=== PATIENT | male | born 1985 | race Caucasian/White ===

== ENCOUNTER 2024-03-07 12:05 | Inpatient (IN) ==
--- NOTE | 2024-03-07 12:50 | Emergency Department Note ---
Impression & Plan Fever, Transaminitis, Acute Lyme disease, Leukocytosis, Elevated lipase, Elevated troponin ED Provider Note HISTORY OF PRESENT ILLNESS: Patient is a 39-year-old male presenting with fevers. Patient reports he had a fever for the last week. Reports the temperatures been up to 101 Fahrenheit. Reports he last took a dose of ibuprofen around 7:30 AM. He states that he was found to have elevated. Liver function tests 3 days ago. He had repeat testing done at [facility] 48 hours ago that showed elevated numbers and he was referred to the emergency department for further evaluation. He reports that he has had epigastric pain intermittently over the last week. He denies any history of abdominal surgeries. Denies any nausea or vomiting. Reports that he had left-sided posterior neck pain earlier today. He does report that he noticed a few erythematous blotchy patches on his abdomen that started yesterday. He denies them being itchy. No known tick exposures. Denies any chest pain or shortness of breath. Denies any recent travel or recent sick contact exposures. ROS: as above PHYSICAL EXAM: Constitutional: Patient appears in no acute distress. HENT: Head: Normocephalic and atraumatic. Eyes: EOMI, PERRL Mouth/Throat: Mucous membranes moist. Neck: Trachea midline. Neck supple. Cardiovascular: RRR, No murmurs, rubs or gallops. Intact distal pulses. Pulmonary/Chest: No respiratory distress. Breath sounds clear and equal bilaterally. No wheezes or rales. Abdominal: Abdomen soft, no tenderness, rebound or guarding. Musculoskeletal: No edema, tenderness or deformity noted. Skin: Warm and dry. No rash, erythema, pallor or cyanosis Psychiatric: Appropriate mood and affect for situation. Neurological: Alert and keenly responsive. CN II-XII grossly intact, moving all extremities equally and fully. MDM: - Vitals signs showed hypertension and tachycardia. - History obtained via patient. History as above. - Chronic conditions affecting care: none - Differential diagnoses include, but are not limited to: cholecystitis; choledocholithiasis; Lyme disease; tick borne illness; hepatitis - Order placed for continuous cardiac monitoring. At this time, monitor showed rate of 87 bpm with normal sinus rhythm, per my interpretation. - External medical records reviewed. [facility] visit note with his primary care provider from 03/07/2024 was reviewed. Patient was seen for his fevers and moderate LFT elevation. He was prescribed doxycycline on 03/06/2024, but only took one pill. Given his symptoms, he was referred to the ER today. - EKG interpreted by myself showed normal sinus rhythm. Rate 91 bpm. QT 358. No acute ischemic changes. Noted to have an incomplete right bundle branch block. - Laboratory workup interpreted by myself showed leukocytosis (WBC 14.45); normal PT/INR; normal lactate; stable electrolytes; elevated total bilirubin (1.3); transaminitis (AST 191; ALT 605); elevated troponin (26.9); elevated lipase (96); normal procalcitonin - US abdomen limited study obtained on 03/06/2024 from [facility] was reviewed. Showed no acute abnormalities. Noted to have splenomegaly and a "homogeneous subcentimeter hyperechoic lesion in the right hepatic lobe, which likely represents a hemangioma." - Blood cultures obtained - Negative anaplasma smear - Positive Lyme - VBG normal - CXR negative for pneumonia, per my interpretation - Viral respiratory panel negative - CT abdomen/pelvis with IV contrast negative for acute pathology. Noted to have a borderline enlarged spleen. - Patient given 1L NS in ER. Given 100 mg IV doxycycline. - Acute hepatitis panel ordered for further workup. - Patient's transaminitis likely secondary to his Lyme disease infection. Discussed results with patient. Will admit to hospitalist service for further workup. - Discussion was had with case management director about patient's case and need for admission - Hospitalist consulted for admission - Patient admitted to [facility] hospitalist service for further evaluation and management. ASSESSMENT AND PLAN: Diagnosis: fever; transaminitis; acute lyme disease; elevated troponin; elevated lipase; leukocytosis Plan: admit Past Med/Surg History Problem List (Updated 03/07/24 @ 16:04 by Jennifer Palomares MD) Elevated troponin (Acute) Elevated lipase (Acute) Leukocytosis (Acute) Acute Lyme disease (Acute) Transaminitis (Acute) Fever (Acute) No known health problems (Chronic 12/30/12) Social History Smoking Status: Never smoker Feels Safe at Home: Yes Allergies Allergies Allergy/AdvReac Type Severity Reaction Status Date / Time No Known Allergies Allergy Unverified 12/30/12 18:33 Home Meds Home Medications Medication Instructions Recorded Confirmed None (Patient States No Home Meds) ##0 12/30/12 Previous Rx's Medication Instructions Recorded DOCUSATE SODIUM (COLACE) 100 mg PO BID ##30 12/31/12 IBUPROFEN (SM IBUPROFEN) 400 mg PO Q6H PRN 10 days ##0 12/31/12 OXYCODONE/ACETAMINOPHEN 5MG/325MG 1 - 2 tab PO Q4H PRN ##60 12/31/12 Results & Data (ED) Vital Signs Vital Signs - 24 hr 03/07/24 12:07 03/07/24 12:26 03/07/24 12:32 Temperature 36.5 C Temperature Source Oral Pulse Rate 96 H 103 H Respiratory Rate 20 Respiratory Effort / Characteristics Non-Labored Spontaneous Respiratory Depth Normal Blood Pressure 143/96 H Blood Pressure Mean 111 Pulse Oximetry 96 98 Oxygen Delivery Method Room Air Room Air Sepsis Recent Fever Within 48 Hours No Sepsis New/Unexplained Change in Mental Status No Sepsis Action Taken by Nursing No Action Required 03/07/24 13:00 03/07/24 13:30 03/07/24 13:43 Temperature 37.0 C Temperature Source Oral Pulse Rate 86 87 Respiratory Rate 18 20 Respiratory Effort / Characteristics Respiratory Depth Blood Pressure 125/79 118/78 Blood Pressure Mean 95 90 Pulse Oximetry 98 100 Oxygen Delivery Method Room Air Room Air Sepsis Recent Fever Within 48 Hours Sepsis New/Unexplained Change in Mental Status Sepsis Action Taken by Nursing Laboratory Data 03/07/24 12:25 03/07/24 12:25 Lab Results 03/07/24 03/07/24 03/07/24 Range/Units 12:25 12:26 12:42 WBC 14.45 H (4.8-10.8) K/ul RBC 4.79 (4.70-6.10) M/uL Hgb 14.3 (14.0-18.0) g/dl Hct 41.9 L (42.0-52.0) % MCV 87.5 (80.0-100.0) fL MCH 29.9 (25.0-34.0) pg MCHC 34.1 (32.0-36.0) g/dL RDW Std Deviation 39.6 (36.4-46.3) fL RDW Coeff of Juanito 12.3 (11.5-14.5) % Plt Count 234 (130-400) K/uL MPV 8.4 L (9.4-12.4) fL Immature Gran % (Auto) 0.4 % Neut % (Auto) 75.7 % Lymph % (Auto) 16.7 % Travis % (Auto) 6.5 % Eos % (Auto) 0.5 % Baso % (Auto) 0.2 % Neut # (Auto) 10.94 H (1.40-6.50) K/uL Lymph # (Auto) 2.41 (1.20-3.40) K/uL Travis # (Auto) 0.94 H (0.11-0.59) K/uL Eos # (Auto) 0.07 (0.00-0.50) K/uL Baso # (Auto) 0.03 (0.00-0.20) K/uL Immature Gran # (Auto) 0.06 (0.01-0.20) K/uL PT 11.2 (9.0-12.0) Seconds INR 1.0 (0.9-1.1) VBG pH 7.40 (7.36-7.41) VBG pCO2 41 (38-50) mmHg VBG pO2 46 mmHg VBG HCO3 25 mmol/L VBG O2 Saturation 81.9 % VBG Base Excess 0.5 mEq/L Sodium 138 (136-145) mmol/L Potassium 3.6 (3.5-5.1) mmol/L Chloride 102 (98-107) mmol/L Carbon Dioxide 28 (21-32) mmol/L Anion Gap 8 (3-11) BUN 14 (6-23) mg/dl Creatinine 0.85 (0.6-1.4) mg/dl Est Cr Clr Drug Dosing 126.8 ml/min Est GFR ( Amer) 126.3 ml/min Est GFR (Non-Af Amer) 109.0 ml/min BUN/Creatinine Ratio 16.5 (10-20) Glucose 101 H (70-99(Fasting)) mg/dl Lactate 1.3 (0.4-2.0) mmol/L Calcium 9.8 (8.6-10.3) mg/dl Magnesium 2.0 (1.7-2.4) mg/dl Total Bilirubin 1.3 H (0.2-1.0) mg/dl Direct Bilirubin 0.3 H (0-0.2) mg/dl AST 191 H (13-39) U/L ALT 605 H (7-52) U/L Alkaline Phosphatase 235 H (34-104) U/L Troponin I High Sens 26.9 H (0-20) pg/ml Total Protein 8.3 (6.0-8.3) gm/dl Albumin 4.5 (3.4-5.0) gm/dl Lipase 96 H (11-82) U/L Procalcitonin 0.34 (0-0.5) ng/ml Adenovirus (PCR) Not Detected (NotDetected) Anaplasma Smear See Comment B. pertussis DNA (PCR) Not Detected (NotDetected) B.parapertussis DNA PCR Not Detected (NotDetected) Lyme Disease Screen Positive H (Negative) Lyme Tier 2 IgG Confirm Positive H (Negative) Lyme Tier 2 IgM Confirm Positive H (Negative) C. pneumoniae DNA (PCR) Not Detected (NotDetected) Coronavirus OC43 (PCR) Not Detected (NotDetected) Coronavirus HKU1 (PCR) Not Detected (NotDetected) Coronavirus 229E (PCR) Not Detected (NotDetected) SARS-CoV-2 (PCR) Not Detected (NotDetected) Coronavirus NL63 (PCR) Not Detected (NotDetected) Human Metapneumovir PCR Not Detected (NotDetected) Influenza Type A (PCR) Not Detected (NotDetected) Influenza Type B (PCR) Not Detected (NotDetected) M. pneumoniae (PCR) Not Detected (NotDetected) Parainfluenza 1 (PCR) Not Detected (NotDetected) Parainfluenza 2 (PCR) Not Detected (NotDetected) Parainfluenza 3 (PCR) Not Detected (NotDetected) Parainfluenza 4 (PCR) Not Detected (NotDetected) RSV (PCR) Not Detected (NotDetected) Entero/Rhino (PCR) Not Detected (NotDetected) Administered Medications Discontinued Medications Sodium Chloride (Nss) 1,000 mls @ 999 mls/hr IV .Q1H1M ONE Stop: 03/07/24 13:48 Last Infusion: 03/07/24 14:17 Dose: Infused Documented By: Admin: 03/07/24 13:15 Dose: 999 mls/hr Documented By: CONRADO Doxycycline Hyclate 100 mg/ (Dextrose) 100 mls @ 50 mls/hr IV NOW STA Stop: 03/07/24 15:53 Last Admin: 03/07/24 15:34 Dose: 50 mls/hr Documented By: NEELIMA Ioversol (Optiray 320 100ml) 94 ml IV ONCE ONE Stop: 03/07/24 13:59 Last Admin: 03/07/24 13:59 Dose: 94 ml Documented By: ELENA Imaging Data Radiologist's Impression: Chest X-Ray 03/07/24 12:18 XR chest 1V portable CLINICAL HISTORY: Sepsis. COMPARISON STUDY: Chest CT and chest radiograph December 30, 2012. FINDINGS: Lung volumes are normal. Lungs are clear. There is no pneumothorax or pleural effusion. Cardiac size is normal. Mediastinal contours are normal. There is no evidence for pulmonary edema. IMPRESSION: No acute cardiopulmonary findings. ACT 112: Negative or not required by law. Electronically signed by: Florencio Cardona M.D. 03/07/2024 1:15 PM Abdomen/Pelvis CT 03/07/24 13:[address] WITH IV CONTRAST CT DOSE: 998.26 mGy.cm HISTORY: Acute right upper quadrant abdominal pain RUQ abdominal pain; transaminitis TECHNIQUE: Multiaxial CT images of the abdomen and pelvis were performed following the IV administration of 94 cc of Optiray, A dose lowering technique was utilized adhering to the principles of ALARA. COMPARISON STUDY: 12/30/2012 FINDINGS: The lung bases are clear. Spleen is mildly enlarged, 13.5 cm. The liver, contracted gallbladder, pancreas, kidneys, and adrenal glands are within normal limits. Mild periportal edema. No bowel wall thickening or obstruction. Normal appendix. Small fat filled right inguinal hernia. The pelvic organs are unremarkable. No suspicious lytic or blastic osseous lesions. IMPRESSION: 1. No acute intra-abdominal or intrapelvic abnormality identified. 2. Normal appendix. 3. Contracted gallbladder. 4. Borderline enlarged spleen. ACT 112: Negative or not required by law. The above report was generated using voice recognition software. It may contain grammatical, syntax or spelling errors. Electronically signed by: Emanuel Andre M.D. 03/07/2024 2:29 PM Discharge Plan Visit Data Chief Complaint: Fever Stated Complaint: FEVER, ELEVATED LIVER ENZYMES ED Provider: Jennifer Palomares Discharge Problem: Fever, Transaminitis, Acute Lyme disease, Leukocytosis, Elevated lipase, Elevated troponin Forms Stand Alone Forms: Advisor Client Match Prescriptions Prescriptions: No Action None (Patient States No Home Meds) . Qty: 0 DOCUSATE SODIUM (COLACE) 100 MG capsule 100 mg PO BID Qty: 30 0RF IBUPROFEN (SM IBUPROFEN) 200 MG tablet 400 mg PO Q6H PRN10 Days Qty: 0 0RF Rx Instructions: CAN START AFTER 2-3 DAYS OXYCODONE/ACETAMINOPHEN 5MG/325MG 1 TAB tablet 1 - 2 tab PO Q4H PRNQty: 60 0RF Referrals Referrals: PCP,NO [Primary Care Provider] -
[2024-03-07 12:59] LABS: Basophils # (auto) 0.03 K/uL (0.00-0.20); Basophils % (auto) 0.2 %; Eosinophils # (auto) 0.07 K/uL (0.00-0.50); Eosinophils % (auto) 0.5 %; Hematocrit (blood only) 41.9 % (42.0-52.0); Hemoglobin 14.3 g/dl (14.0-18.0); Immature Granulocytes # (auto) 0.06 K/uL (0.01-0.20); Immature Granulocytes % (auto) 0.4 %; Lymphocytes # (auto) 2.41 K/uL (1.20-3.40); Lymphocytes % (auto) 16.7 %; Mean Corpuscular Hemoglobin 29.9 pg (25.0-34.0); Mean Corpuscular Hgb Conc 34.1 g/dL (32.0-36.0); Mean Corpuscular Volume 87.5 fL (80.0-100.0); Mean Platelet Volume 8.4 fL (9.4-12.4); Monocytes # (auto) 0.94 K/uL (0.11-0.59); Monocytes % (auto) 6.5 %; Neutrophils # (auto) 10.94 K/uL (1.40-6.50); Neutrophils % (auto) 75.7 %; Platelet Count 234 K/uL (130-400); RDW Coefficient of Variation 12.3 % (11.5-14.5); RDW Standard Deviation 39.6 fL (36.4-46.3); Red Blood Count 4.79 M/uL (4.70-6.10); White Blood Count 14.45 K/ul (4.8-10.8)
[2024-03-07 13:09] LABS: Base Excess VBG 0.5 mEq/L; HCO3 VBG 25 mmol/L; Oxygen Saturation VBG 81.9 %; PCO2 VBG 41 mmHg (38-50); PO2 VBG 46 mmHg
[2024-03-07] MEDS: SODIUM CHLORIDE 0.9% 1,000 ML IV ONE (13:15)
--- NOTE | 2024-03-07 13:16 | XRay Report ---
XR chest 1V portable CLINICAL HISTORY: Sepsis. COMPARISON STUDY: Chest CT and chest radiograph December 30, 2012. FINDINGS: Lung volumes are normal. Lungs are clear. There is no pneumothorax or pleural effusion. Car diac size is normal. Mediastinal contours are normal. There is no evidence for pulmonary edema. IMPRESSION: No acute cardiopulmonary findings. ACT 112: Negative or not required by law. Electronically signed by: Florencio Cardona M.D. 03/07/2024 1:15 PM
[2024-03-07 13:18] LABS: BUN Creatinine Ratio 16.5 (10-20); Calcium 9.8 mg/dl (8.6-10.3); Creatinine Clr Calc Pharmacy 126.8 ml/min; Est GFR (African American) 126.3 ml/min; Potassium 3.6 mmol/L (3.5-5.1)
[2024-03-07 13:20] LABS: Albumin Level 4.5 gm/dl (3.4-5.0); Bilirubin Direct 0.3 mg/dl (0-0.2); Bilirubin,Total 1.3 mg/dl (0.2-1.0); Procalcitonin 0.34 ng/ml (0-0.5); Total Protein 8.3 gm/dl (6.0-8.3)
[2024-03-07 13:21] LABS: Troponin I High Sensitivity 26.9 pg/ml (0-20)
[2024-03-07 13:28] LABS: Prothrombin Time 11.2 Seconds (9.0-12.0)
[2024-03-07 13:45] LABS: Lyme Screen Rflx Confirmation Positive (Negative)
[2024-03-07] MEDS: OPTIRAY 320 100ml IV ONE (13:59)
[2024-03-07 14:05] LABS: Adenovirus PCR Not Detected (NotDetected); Bordetella parapertussis PCR Not Detected (NotDetected); Bordetella pertussis PCR Not Detected (NotDetected); Chlamydia pneumoniae PCR Not Detected (NotDetected); Coronavirus 229E PCR Not Detected (NotDetected); Coronavirus CoV-2 (COVID19)PCR Not Detected (NotDetected); Coronavirus HKU1 PCR Not Detected (NotDetected); Coronavirus NL63 PCR Not Detected (NotDetected); Coronavirus OC43PCR Not Detected (NotDetected); Human Metapneumovirus PCR Not Detected (NotDetected); Influenza A PCR Not Detected (NotDetected); Influenza B PCR Not Detected (NotDetected); Mycoplasma pneumoniae PCR Not Detected (NotDetected); Parainfluenza Virus 1 PCR Not Detected (NotDetected); Parainfluenza Virus 2 PCR Not Detected (NotDetected); Parainfluenza Virus 3 PCR Not Detected (NotDetected); Parainfluenza Virus 4 PCR Not Detected (NotDetected); Respiratory Syncytial VirusPCR Not Detected (NotDetected); Rhinovirus/Enterovirus PCR Not Detected (NotDetected)
[2024-03-07 14:19] LABS: Lyme Ab IgG 2nd Tier Confirm Positive (Negative)
[2024-03-07 14:20] LABS: Lyme Ab IgM 2nd Tier Confirm Positive (Negative)
--- NOTE | 2024-03-07 14:31 | CT Scan Report ---
ABDOMEN AND PELVIS CT WITH IV CONTRAST CT DOSE: 998.26 mGy.cm HISTORY: Acute right upper quadrant abdominal pain RUQ abdominal pain; transaminitis TECHNIQUE: Multiaxial CT images of the abdomen and pelvis were performed following the IV administrat ion of 94 cc of Optiray, A dose lowering technique was utilized adhering to the principles of ALARA. COMPARISON STUDY: 12/30/2012 FINDINGS: The lung bases are clear. Spleen is mildly enlarged, 13.5 cm. The liver, contracted gallbla dder, pancreas, kidneys, and adrenal glands are within normal limits. Mild periportal edema. No bowel wall thickening or obstruction. Normal appendix. Small fat filled right inguinal hernia. The pelvic organs are unremarkable. No suspicious lytic or blastic osseous lesions. IMPRESSION: 1. No acute intra-abdominal or intrapelvic abnormality identified. 2. Normal appendix. 3. Contracted gallbladder. 4. Borderline enlarged spleen. ACT 112: Negative or not required by law. The above report was generated using voice recognition software. It may contain grammatical, syntax o r spelling errors. Electronically signed by: Emaunel Andre M.D. 03/07/2024 2:29 PM
--- NOTE | 2024-03-07 14:40 | Electrocardiogram Report ---
Test Reason : Blood Pressure : / mmHG Vent. Rate : 091 BPM Atrial Rate : 091 BPM P-R Int : 176 ms QRS Dur : 098 ms QT Int : 358 ms P-R-T Axes : 062 020 028 degrees QTc Int : 440 ms Normal sinus rhythm Incomplete right bundle branch block Borderline ECG When compared with ECG of 30-DEC-2012 17:25, No significant change was found Confirmed by Jose Haro ([id number]) on 03/07/2024 2:40:12 PM Referred By: Confirmed By:Jose Haro
[2024-03-07] MEDS: DOXYCYCLINE HYCLATE 100 MG in DEXTROSE 5% MINI-B 100 ML IV STA (15:34)
--- NOTE | 2024-03-07 16:13 | History & Physical Report ---
Date of Service March 07, 2024 Assessment & Plan (1) Lyme disease: (2) Fever: (3) Leukocytosis: (4) Transaminitis: (5) Elevated troponin: Plan: Patient is 39 year old male without significant PMH presented to ER with c/o fever, IRBY, left neck discomfort, myalgias x greater than one week. Outpatient 03/04/24 negative SARS-CoV-2, influenza, RSV PCR , negative Lyme disease antibody screen, and negative HCV antibody and HepBs antigen. T bili: 0.2, AST: 309, ALT: 468, Alk Phos: 179. 03/06/2024 ultrasound abdomen impression: Homogeneous subcentimeter hypoechoic lesion in right hepatic lobe, which likely represents a hemangioma, further evaluation with MRI abdomen with and without contrast recommended. splenomegaly with spleen measuring 12.8 cm. Contracted gallbladder, no pericholecystitis fluid or calculus. No intrahepatic or extrahepatic biliary ductal dilation. Common bile duct measures 0.5 cm proximally. Unremarkable head and body of pancreas. Pancreatic tail obscured by bowel gas. Right kidney no hydronephrosis. No ascites. Today in ER patient afebrile, vital stable. WBC: 14, lactate WNL, procalcitonin: 0.34, T. bili: 1.3, direct bili: 0.3, AST: 191, ALT: 605, alk phos: 235, lipase: 96 Lyme disease screen positive, Lyme IgG positive, Lyme IgM positive. Negative B pertussis PCR, anaplasma smear Negative respiratory biofire Troponin: 26-->21 EKG: Sinus rhythm, rate 91, incomplete RBBB per my interpretation CT Abd/pelvis: No acute intra-abdominal or intrapelvic abnormality identified. Normal appendix. Contracted gallbladder. Borderline enlarged spleen. No acute cardiopulmonary findings. Anaplasma PCR and ehrlichia pending Blood cultures pending In ER given doxycycline, 1L NSS Will continue IV doxycycline Acute hepatitis panel pending Monitor on telemetry Trend troponin Echo EKG in am as incomplete RBBB on today EKG. Denies CP, SOB May need to consider LP with reported neck pain. Currently no neck rigidity on exam and is A&O May need to consider GI consult for abnormal LFTs if worsening CBC, CMP in am DVT Prophylaxis SCDs Admit med tele Full Code as per discussion with pt Pt was seen and care coordinated with Dr Weber. See addendum I spent a total of 78 minutes reviewing notes, outpatient records, labs, medication, coordinating, documenting and providing care for this patient excluding time spent in the performance of separately billed services. History of Present Illness Chief Complaint: Fever Primary Care Provider: NO PCP Patient is 39 year old male without significant PMH presented to ER with c/o fever. History obtained from patient and outpatient chart review. Per chart review was seen at urgent care on 03/04/2024 for fever, posterior IRBY, myalgias at that time for 6 days. He had negative SARS-CoV-2, influenza, RSV PCR at that time. Had a negative Lyme disease antibody screen, and negative HCV antibody and HepBs antigen at that time. T bili: 0.2, AST: 309, ALT: 468, Alk Phos: 179. 03/06/2024 ultrasound abdomen impression: Homogeneous subcentimeter hypoechoic lesion in right hepatic lobe, which likely represents a hemangioma, further evaluation with MRI abdomen with and without contrast recommended. splenomegaly with spleen measuring 12.8 cm. Contracted gallbladder, no pericholecystitis f luid or calculus. No intrahepatic or extrahepatic biliary ductal dilation. Common bile duct measures 0.5 cm proximally. Unremarkable head and body of pancreas. Pancreatic tail obscured by bowel gas. Right kidney no hydronephrosis. No ascites. Patient states was prescribed doxycycline and has taken 1 pill. Patient reports often has ticks crawling on him. Last embedded tick he removed was in 11/2023. 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 Denies known history of Lyme disease or Tick borne illness. Was taking 2 tabs OTC Tylenol BID for 2 days. Last used couple days ago. Otherwise was using 2 tabs OTC Ibuprofen twice a day. Drinks 1 ETOH beverage once a month. Denies known liver disorder. States when takes ibuprofen or Tylenol the fever and IRBY reduce. States couple of days ago had epigastric discomfort which has resolved. States has discomfort of his left posterior neck with movement. Fever Tmax 101F couple of days ago. Had telemedicine visit today 03/07/2024 has had continued fevers and was recommended to come to ER. Denies N/V/D/C, IRBY, dizziness, syncope, vision changes, CP, SOB, orthopnea, palpitations, cough, sore throat, otalgia, rhinorrhea, paresthesias, weakness, extremity edema, rashes, urinary symptoms. Denies significant FH Allergies Allergy/AdvReac Type Severity Reaction Status Date / Time No Known Allergies Allergy Unverified 12/30/12 18:33 Home Medications Medication Instructions Recorded Confirmed Type multivitamin 1 tab PO DAILY 03/07/24 03/07/24 History Past Med/Surg History Problem List (Updated 03/07/24 @ 17:28 by Juli Penn PA-C) Lyme disease Elevated troponin (Acute) Elevated lipase (Acute) Leukocytosis (Acute) Acute Lyme disease (Acute) Transaminitis (Acute) Fever (Acute) No known health problems (Chronic 12/30/12) Surgical History History of dental surgery Social History Smoking Status: Never smoker Second Hand Exposure: No; Do You Dip or Chew Tobacco: No; Tobacco Cessation Education Requested by Patient: No Hx Alcohol Use: No Hx Substance Use: No Preferred Language: Tristanian Communication Ability: Effective Machine Or Machinery Mechanic Required: No Beliefs That Will Affect Care: None Current Living Situation: Family Current Living Situation Comment: home Other Information That Helps Us Care for You: No Feels Safe at Home: Yes Safety Concerns: Feels Safe At This Time Assistive Devices: None Review of Systems Review of Systems: All systems reviewed & are unremarkable except as noted in HPI & below Physical Exam Physical Exam: General: no acute distress, WDWN Head: normocephalic, atraumatic Eyes: conjunctiva non-injected, anicteric ENT: normal inspection external ears, nose, mucous membranes moist Neck: supple, trachea midline, ROM neck intact without rigidity noted, +tenderness to palpation left posterior cervical region Lungs: clear, no respiratory distress, no wheezing/rhonchi/rales CV: RRR, no murmur, no pretibial edema Abd: normal BS, soft, non-tender to palpation Ext: no cyanosis, no calf tenderness Neuro: A&O x 3, no focal deficits noted, normal affect Skin: hot, dry, +oval erythema area to abdomen, right flank and lower back Results & Data Results & Data Vital Signs (Past 12 Hours) Vital Signs Temp Pulse Resp BP Pulse Ox O2 Del Method 03/07/24 13:43 37.0 C 03/07/24 13:30 87 20 118/78 100 Room Air 03/07/24 13:00 86 18 125/79 98 Room Air 03/07/24 12:32 98 Room Air 03/07/24 12:26 103 H 03/07/24 12:07 36.5 C 96 H 20 143/96 H 96 Room Air Laboratory Results Short CBC 03/07/24 Range/Units 12:25 WBC 14.45 H (4.8-10.8) K/ul Hgb 14.3 (14.0-18.0) g/dl Hct 41.9 L (42.0-52.0) % Plt Count 234 (130-400) K/uL BMP 03/07/24 12:25 Sodium 138 Potassium 3.6 Chloride 102 Carbon Dioxide 28 BUN 14 Creatinine 0.85 Glucose 101 H Calcium 9.8 Liver Function 03/07/24 Range/Units 12:25 Total Bilirubin 1.3 H (0.2-1.0) mg/dl Direct Bilirubin 0.3 H (0-0.2) mg/dl AST 191 H (13-39) U/L ALT 605 H (7-52) U/L Alkaline Phosphatase 235 H (34-104) U/L Albumin 4.5 (3.4-5.0) gm/dl Diagnostic Findings Chest X-Ray 03/07/24 12:18 XR chest 1V portable CLINICAL HISTORY: Sepsis. COMPARISON STUDY: Chest CT and chest radiograph December 30, 2012. FINDINGS: Lung volumes are normal. Lungs are clear. There is no pneumothorax or pleural effusion. Cardiac size is normal. Mediastinal contours are normal. There is no evidence for pulmonary edema. IMPRESSION: No acute cardiopulmonary findings. ACT 112: Negative or not required by law. Electronically signed by: Florencio Cardona M.D. 03/07/2024 1:15 PM Abdomen/Pelvis CT 03/07/24 13:[address] WITH IV CONTRAST CT DOSE: 998.26 mGy.cm HISTORY: Acute right upper quadrant abdominal pain RUQ abdominal pain; transaminitis TECHNIQUE: Multiaxial CT images of the abdomen and pelvis were performed following the IV administration of 94 cc of Optiray, A dose lowering technique was utilized adhering to the principles of ALARA. COMPARISON STUDY: 12/30/2012 FINDINGS: The lung bases are clear. Spleen is mildly enlarged, 13.5 cm. The liver, contracted gallbladder, pancreas, kidneys, and adrenal glands are within normal limits. Mild periportal edema. No bowel wall thickening or obstruction. Normal appendix. Small fat filled right inguinal hernia. The pelvic organs are unremarkable. No suspicious lytic or blastic osseous lesions. IMPRESSION: 1. No acute intra-abdominal or intrapelvic abnormality identified. 2. Normal appendix. 3. Contracted gallbladder. 4. Borderline enlarged spleen. ACT 112: Negative or not required by law. The above report was generated using voice recognition software. It may contain grammatical, syntax or spelling errors. Electronically signed by: Emanuel Andre M.D. 03/07/2024 2:29 PM ECG Additional Comments: Sinus rhythm, rate 91, incomplete RBBB per my interpretation Supervising Physician Co-Signing Physician Notes Pt was seen and examined by myself, Miriam Weber MD on the day of service. Care was coordinated with Juli Penn PA-C. 39yoM presenting for further evaluation of positive lyme titers and elevated liver enzymes. States also having neck pain and a "stiff neck" Noted tachycardia, pt noting fevers at home, concern for sepsis On exam AAOx3, no acute distress, RRR, abdomen soft nontender Continue with IV doxycycline, trend liver enzymes. If no improvement, consider ID, GI consult With reported neck pain, consider LP Otherwise as above. I spent a total [id number] coordinating, documenting, and providing care for this patient excluding time spent in the performance of separately billed services
[2024-03-07 18:03] LABS: HepB Surface Ag with confirm Negative (Negative)
[2024-03-07 18:08] LABS: HepC Ab Rflx HepCQuant RNA Negative (Negative)
[2024-03-07] MEDS ORDERED: POLYETHYLENE (MIRALAX) 17 GM PACK PO PRN (18:29)
[2024-03-07] MEDS ORDERED: ONDANSETRON INJ 2 MG/ML 2 ML VIAL IV PRN (18:29)
[2024-03-07] MEDS ORDERED: ACETAMINOPHEN 325 MG TAB PO PRN (18:29)
[2024-03-07] MEDS: IBUPROFEN 600 MG TAB PO PRN (19:39)
[2024-03-07 21:05] LABS: Appearance Urine Clear (Clear); Bilirubin Urine Negative (Negative); Blood Urine Negative (Negative); Color Urine Yellow; Glucose Urine UA Negative (Negative); Ketones Urine 1+ (Negative); Leukocyte Esterase Urine Negative (Negative); Nitrite Urine Negative (Negative); Protein Urine Negative (Negative); Specific Gravity Urine 1.021 (1.000-1.030); Urobilinogen Urine Negative (Negative); pH Urine 6.5 (4.5-7.5)
--- OUTSIDE RECORDS SUMMARY | 2024-03-07 22:46 | External Medical Summary | Summary of Care ---
Author Name Unknown Organization [facility] Address [address] [place] [address] Phone [phone] Care Team Providers Care Certified Drug Counselor Name Role Phone Winston Daley MD Primary Care Provider [phone] Encounter Details Date Type Department Care Team ([facility] st Contact Info) Description 03/07/2024 Orders Only [facility] [address] [place] [address] Kaitlin Arroyo PA-C [address] [place] [address] Allergies No known active allergiesdocumented as of this encounter (statuses as of 03/07/2024) Medications Medication Sig Dispensed Refills Start Date End Date Status predniSONE 20 MG Oral Tablet (Deltasone)Indicati ons:Elbow pain, right Take 3 tabs for 3 days, 2 tabs for 3 days, 1 tab for 3 days, 1/2 tab for 3 days 20 Tablet 03/16/2022 Active Doxycycline Hyclate 100 MG Oral Capsule Take 1 Capsule by mouth in the morning and 1 Capsule before bedtime. Do all this for 21 days. 42 Capsule 03/06/2024 03/27/2024 Active documented as of this encounter (statuses as of 03/07/2024) Active Problems Problem Noted Date Diagnosed Date Adult Acne 06/15/2007 documented as of this encounter (statuses as of 03/07/2024) Immunizations Name Administration Dates Next Due COVID-19 mRNA, LNP-s, No Pre serve, 2-Dose Series ([employer]) 12/11/2020,11/15/2020 Seasonal Influenza, PF, 6 M & above, IM , (FluLaval or Fluzone) 06/03/2020,07/04/2018 Seasonal Influenza, Split, I IV3, With Preserve, Inj 06/19/2012,05/06/2009 TDAP (age 10 and older)(Boostrix) 2021,03/16/2022(Deferred: Patient Refused) TDAP, Age 7 and older, IM (Adacel) 09/20/2006 documented as of this encounter Social History Tobacco Use Types Packs/Day Years Used Date Smoking Tobacco: Never Smokeless Tobacco: Never Alcohol Use Standard Drinks/Week Comments No 0 (1 standard drink = 0.6 oz pur e alcohol) PHQ-2 Answer Date Recorded PHQ Adult Total Score 0 03/16/2022 Utilities Answer Date Recorded Do you have trouble paying y our heating, water, or electric bill? (Adult - for ages 18 years and over) Not on file 02/01/2024 Is your family able to pay t he heat, water, or electric bill? (Household - for ages 0-17 years) Not on file 02/01/2024 Does your family have access to good internet? (Household - for ages 0-17 years) Not on file 02/01/2024 Social Connections Answer Date Recorded How often do you feel lonely or isolated from those around you? (Adult - for ages 18 years and over) Not on file 02/01/2024 Sex and Gender Information Value Date Recorded Sex Assigned at Not on file Gender Identity Not on file Sexual Orientation Not on file Job Start Date Occupation Industry Not on file Not on file Not on file documented as of this encounter Plan of Treatment Upcoming Encounters Date Type Department Care Team ([facility] Contact Info) Description 03/07/2024 11:00 AM EDT Telemedicine [address] [phone] Winston Daley MD [address] [place], [place] [email or web address] [id number] Health Maintenance Due Date Last Done Comments Lipid Panel 1984 HIV Screening 02/20/1999 Depression Screening 03/16/2023 03/16/2022 COVID-19 Vaccine (3 - 2022-24 season) 2023 12/11/2020, 11/15/2020 Influenza Vaccine (FLU shot) (#1) 2024 06/03/2020, 07/04/2018, 06/19/2012, Additional history exists Diabetes Screening 03/06/2027 03/06/2024, 03/04/2024 DTaP,Tdap,and Td Vaccines (8 - Td or Tdap) 03/16/2032 03/16/2022, 09/20/2006, 06/14/1995, Additional history exists Hepatitis B Vaccine Completed 06/19/1998, 01/18/1998, 12/20/1997 Hepatitis C Screening Completed 03/06/2024 HPV (Gardasil) Vaccine Aged Out No lo nger eligible based on patient's age to complete this topic MENINGOCOCCAL (MENACTRA/MENVEO) Aged Out No longer eligible based on patient's age to complete this topic Pneumococcal Vaccine: Pediatrics (0 to 5 Years) and At-Risk Patients (6 to 64 Years) Aged Out No longer eligible based on patient's age to complete this topic documented as of this encounter Medical Devices Not on filedocumented as of this encounter Procedures Procedure Name Priority Date/Time Associated Diagnosis Comments CHEMISTRY-OUTSIDE Routine 03/06/2024 HEPATITIS C ANTIBODY Routine 03/06/2024 documented in this encounter Results * HEPATITIS C ANTIBODY (03/06/2024) Blood Venous blood specimen / Unknown 03/06/2024 Kaitlin Arroyo PA-C LAB BLOOD ORDER [facility] OUTSIDE LAB (SEE SCANNED REPORT) * (ABNORMAL) CHEMISTRY-OUTSIDE (03/06/2024) Not all results display below - see scan for full detail OUTSIDE LAB (SEE SCANNED REPORT) Comment:SCAN INCL: CMP, HEPA TIC PANEL,HEPB AG,CBCD CREATININE-OUTSID E LAB 0.95 0.6 - 1.4 MG/DL OUTSIDE LAB (SEE SCANNED REPORT) EGFR-OUTSIDE LAB 99.7 OUT SIDE LAB (SEE SCANNED REPORT) POTASSIUM-OUTSIDE LAB 3.5 3.5 - 5.1 MMOL/L OUTSIDE LAB (SEE SCANNED REPORT) GLUCOSE-OUTSIDE LAB 130(A) 70 - 99 MG/DL OUTSIDE LAB (SEE SCANNED REPORT) HOURS FASTING OUTSID E LAB (SEE SCANNED REPORT) TRIGLYCERIDES-OUT SIDE LAB OUTSIDE LAB (SEE SCANNED REPORT) CHOLESTEROL-OUTSI DE LAB OUTSIDE LAB (SEE SCANNED REPORT) HDL-OUTSIDE LAB OUTS THERESE LAB (SEE SCANNED REPORT) CHOL/HDL RATIO-OUTSIDE LAB OUTSIDE LA B (SEE SCANNED REPORT) LDL (CALCULATED)-OUTS THERESE LAB OUTSIDE LAB (SEE SCANNED REPORT) LDL (DIRECT MEASURE)-OUTSIDE LAB OUTSIDE LAB (SEE SCANNED REPORT) HEMOGLOBIN, [id number] LAB OUTSIDE LAB (SEE SCANNED REPORT) PHOSPHORUS-OUTSID E LAB OUTSIDE LAB (SEE SCANNED REPORT) PTH-OUTSIDE LAB OUTS THERESE LAB (SEE SCANNED REPORT) MICROALBUMIN RATIO-OUTSIDE LAB OUTSIDE LA B (SEE SCANNED REPORT) PROTEIN, UA-OUTSIDE LAB OUTSIDE LAB (SEE SCANNED REPORT) HGB 13.2(A) 14.0 - 18.0 G/DL OUTSIDE LAB (SEE SCANNED REPORT) 03/06/2024 Kaitlin Arroyo PA-C LABORATORY OUTSIDE LAB (SEE SCANNED REPORT) documented in this encounter Care Teams Certified Drug Counselor Relationship Specialty Start Date End Date Winston Daley MD [address] [place] [id number] PCP - General Family Medicine 06/03/20 documented as of this encounter
--- OUTSIDE RECORDS SUMMARY | 2024-03-07 22:46 | External Medical Summary | Summary of Care ---
Author Name Unknown Organization [facility] Address [address] [facility] [place] [address] Phone [phone] Care Team Providers Care Human Resources Recruiter Name Role Phone Winston Daley MD Primary Care Provider [phone] Reason for Visit * Reason Onset Date Comments Advice 03/06/2024 Encounter Details Date Type Department Care Team ([facility] Contact Info) Description 03/06/2024 Telephone [facility] [address] [place] [address] Kaitlin Arroyo PA-C [address] [place] [address] Advice Allergies No known active allergiesdocumented as of this encounter (statuses as of 03/06/2024) Medications Medication Sig Dispensed Refills Start Date [...] as of this encounter (statuses as of 03/06/2024) Active Problems Problem Noted Date Diagnosed Date Adult Acne 06/15/2007 documented as of this encounter (statuses as of 03/06/2024) Immunizations Name Administration Dates Next Due COVID-19 mRNA, LNP-s, No Pre serve, 2-Dose Series (Pfizer) 12/11/2020,11/15/2020 DTaP Dipth/Tet/Acell Pertussis (Infanrix), Peds 04/01/1989,08/23/1985,1984, 984,1984 Hepatitis B, 0-19 yrs 06/19/1998,01/18/1998,02/1998 MMR - Measles/Mumps/Rubella Vaccine 05/27/1995,1 OPV - Polio Virus Vaccine (Oral) 995,04/01/1989,08/23/1985, 984,1984 PPD 07/21/2004,1984 Seasonal Influenza, PF, 6 M & above, IM , (FluLaval or Fluzone) 06/03/2020,07/04/2018 Seasonal Influenza, Split, I IV3, With Preserve, Inj 06/19/2012,05/06/2009 TD - Tetanus/Diptheria (ADULT) 06/14/1995 TDAP (age 10 and older)(Boostrix) 2021,03/16/2022(Deferred: Patient [...] on file documented as of this encounter Miscellaneous Notes * Addendum Note - Kaitlin Arroyo PA-C - 03/06/2024 12:32 PM EDTAddended by: KAITLIN ARROYO on: 03/06/2024 12:32 PM Modules accepted: Orders * Telephone Encounter - Kaitlin Arroyo PA-C - 03/06/2024 12:30 PM EDT Spoke with patient. Informed patient that liver enzymes are elevated. Would recommend he complete additional labs and liver ultrasound. Patient verbalized understanding. * Telephone Encounter - Kaitlin Arroyo PA-C - 03/06/2024 9:38 AM EDT Patient called into office. Patient stated he was recently seen at Urgent Care. Started with fever,headache and body aches 8 days ago. Headache resolved. Still has a fever and body aches. Fever today was 100.8. Today is 8th day with a fever. History of tick bite. Lyme negative. Doxycycline sent topharmacy. Additional labs added. Advised to complete antibiotic and labs. If symptoms persist, follow up in the office. Patient verbalized understanding. documented in this encounter Plan of Treatment Scheduled Orders Name Type Priority Associated Diagnoses Orde r Schedule CBC WITH WBC DIFFERENTIAL AND ANEMIA REFLEX WORKUP Lab Routine Tick bite, unspecified site, initial encounter Fever, unspecified fever cause Body aches Expected: 03/06/2024 (Approximate), Expires: 03/06/2025 EBV ANTIBODY PROFILE Lab Routine Tick bite, unspecified site, initial encounter Fever, unspecified fever cause Body aches Expected: 03/06/2024 (Approximate), Expires: 03/06/2025 COMPREHENSIVE METABOLIC PANEL Lab Routine Elevated liver enzymes Expected: 03/06/2024 (Approximate), Expires: 03/06/2025 CBC WITH WBC DIFFERENTIAL AND ANEMIA REFLEX WORKUP Lab Routine Elevated liver enzymes Expected: 03/06/2024 (Approximate), Expires: 03/06/2025 EBV ANTIBODY PROFILE Lab Routine Elevated liver enzymes Expected: 03/06/2024 (Approximate), Expires: 03/06/2025 ACUTE HEPATITIS PANEL Lab Routine Elevated liver enzymes Expected: 03/06/2024 (Approximate), Expires: 03/06/2025 HEPATIC FUNCTION PANEL Lab Routine Elevated liver enzymes Expected: 03/06/2024 (Approximate), Expires: 03/06/2025 US ABDOMEN LIMITED Medical Imaging Routine Elevated liver enzymes Expected: 03/06/2024, Expires: 04/06/2025 Health Maintenance Due Date Last Done Comments Lipid Panel 1984 HIV Screening 02/20/1999 Hepatitis C Screening 02/20/2002 Depression Screening 03/16/2023 03/16/2022 COVID-19 Vaccine ( season) 2023 12/11/2020, 11/15/2020 Influenza Vaccine (FLU shot) (#1) 2024 06/03/2020, 07/04/2018, 06/19/2012, Additional history exists Diabetes Screening 03/04/2027 03/04/2024 DTaP,Tdap,and Td Vaccines (8 - Td or Tdap) 03/16/2032 03/16/2022, 09/20/2006, 06/14/1995, Additional history exists Hepatitis B Vaccine Completed 06/19/1998, 01/18/1998, 12/20/1997 HPV (Gardasil) Vaccine Aged Out No lo [...] Not on filedocumented as of this encounter Results * (ABNORMAL) COMPREHENSIVE METABOLIC PANEL (03/04/2024 11:08 AM EDT) BUN 14 6 - 20 mg/dL 03/06/2024 10:18 AM EDT LABORATORY [facility] Creatinine 0.9 0.6 - 1.2 mg/dL 03/06/2024 10:18 AM EDT LAB[facility]ATORY [facility] Estimated Glomerular Filtration Rate >90 >=60 mL/min 03/06/2024 10:18 AM EDT LABORATORY C Comment:eGFR is calculated b ased on the CKD-EPI 2020 equation. Sodium 138 135 - 146 mmol/L 03/06/2024 10:18 AM EDT LABORATORY C Potassium 4.8 3.5 - 5.1 mmol/L 03/06/2024 10:18 AM EDT LABORATORY C Chloride 99 98 - 107 mmol/L 03/06/2024 10:18 AM EDT LABORATORY C CO2 22 22 - 32 mmol/L 03/06/2024 10:18 AM EDT [facility] Anion Gap 17(H) 7 - 15 mmol/L 03/06/2024 10:18 AM EDT LABORATORY C Glucose 92 70 - 120 mg/dL 03/06/2024 10:18 AM EDT LAB[facility]ATORY [facility] Albumin 4.5 3.8 - 5.0 g/dL 03/06/2024 10:18 AM EDT LAB[facility]ATORY [facility] AST 309(H) 10 - 50 U/L 03/06/2024 10:18 AM EDT LABORATORY C Alkaline Phosphatase 179(H) 35 - 130 U/L 03/06/2024 10:18 AM EDT LAB[facility]ATORY [facility] Bilirubin, Total 1.2 <=1.2 mg/dL 03/06/2024 10:18 AM EDT LAB[facility] Calcium 9.4 8.4 - 10.2 mg/dL 03/06/2024 10:18 AM EDT [facility] Protein 7.1 6.0 - 8.3 g/dL 03/06/2024 10:18 AM EDT LAB[facility]ATORY [facility] ALT 468(H) 10 - 50 U/L 03/06/2024 10:18 AM EDT LAB[facility]ATORY [facility] Blood Venous blood specimen / Unknown Venipuncture / Unknown 03/04/2024 11:08 AM EDT 03/04/2024 11:08 AM EDT Kaitlin Arroyo PA-C LAB BLOOD ORDER [facility] [address] [place] [address] documented in this encounter Visit Diagnoses Diagnosis Tick bite, unspecified site, initial encounter- Primary Fever, unspecified fever cause Body aches Generalized pain Elevated liver enzymes Nonspecific elevation of levels of transaminase or lactic acid dehydrogenase (LDH) documented in this encounter Care Teams Human Resources Recruiter Relationship Specialty Start Date End Date Winston Daley MD [address] [place] [id number] PCP - General Family Medicine 06/03/20 documented as of this encounter
[2024-03-08] MEDS: DOXYCYCLINE HYCLATE 100 MG in DEXTROSE 5% MINI-B 100 ML IV SCH (02:42)
[2024-03-08 06:30] LABS: Hematocrit (blood only) 36.8 % (42.0-52.0); Hemoglobin 12.2 g/dl (14.0-18.0); Mean Corpuscular Hemoglobin 29.2 pg (25.0-34.0); Mean Corpuscular Hgb Conc 33.2 g/dL (32.0-36.0); Mean Platelet Volume 8.3 fL (9.4-12.4); Platelet Count 213 K/uL (130-400); RDW Coefficient of Variation 12.3 % (11.5-14.5); RDW Standard Deviation 39.4 fL (36.4-46.3); Red Blood Count 4.18 M/uL (4.70-6.10); White Blood Count 7.31 K/ul (4.8-10.8)
--- OUTSIDE RECORDS SUMMARY | 2024-03-08 06:37 | External Medical Summary | Summary of Care ---
Author Name Unknown Organization [facility] Address [address] [place] [address] Phone [phone] Care Team Providers Care Clip On Sunglasses Inspector Name Role Phone Winston Daley MD Primary Care Provider [phone] Reason for Visit * Reason Comments Fever Encounter Details Date Type Department Care Team ([facility] Contact Info) Description 03/07/2024 11:00 AM EDT Telemedicine [address] [phone] Winston Daley MD [address] [place] [id number] Fever, unspecified fever cause*; Rash and nonspecific skin eruption; Neck stiffness Allergies No known active allergiesdocumented as of [...] No Pre serve, 2-Dose Series ([employer]) 12/11/2020,11/15/2020 Seasonal Influenza, PF, 6 M & [...] on file documented as of this encounter Progress Notes * Winston Daley MD - 03/07/2024 11:18 AM EDT Images from the original note were not included. History of Present Illness Oswaldo Newton is a 39 year old male that presents for No chief complaint on file. Presents for second opinion on following He started fever of 101F last Wednesday-seen in urgent care-flu,rsv,covid negative Labs show moderate LFT elevation Noticed blotchy rash on abdomen and back Neck stiffness like symptoms since yesterday Further labs were done-reports awaited including anaplasmosis labs He was prescribed doxycycline yesterday but he only took one pill and is not sure if he should continue taking ir in view of liver enzyme elevation no cough vomiting diarrhea,chest pain,pnd,orthopnea,pedal edema,shortness of breath,abdominal pain,dysuria,hematuria or melena In view of above symptoms I advised further evaluation via emergency room. Patient agreed Physical Exam There were no vitals filed for this visit. BP Readings from Last 3 Encounters: 03/04/24 120/80 03/16/22 128/80 12/11/16 134/92 Wt Readings from Last 3 Encounters: 03/04/24 86.2 kg (190 lb) 03/16/22 86.2 kg (190 lb 1.6 oz) 12/11/16 82.6 kg (182 lb) No physical exam I have reviewed the following results: rsv,flu,covid,lyme and CMP Assessment and Plan Fever, unspecified fever cause Rash and nonspecific skin eruption Neck stiffness Recommended evaluation via Emergency room I called [facility] emergency room and spoke with Oneyda. Case accepted I will fax all documents to her attention on [phone] Wrap-Up Telemedicine: Patient location: HOME. I was in a hospital or clinic location. After connecting through televideo,patient was verified with two unique identifiers. Patient (or authorized legal sales and marketing representative) was then informed that this was a Telemedicine visit and being conducted confidentially over secure lines. Methods to assure confidentiality were taken. Patient acknowledged consent and understanding of pr ivacy and security of the Telemedicine visit. The patient agreed to participate. documented in this encounter Plan of Treatment Health Maintenance Due Date Last Done Comments Lipid Panel 1984 HIV Screening 02/20/1999 Depression Screening 03/16/2023 03/16/2022 COVID-19 Vaccine ( [...] Not on filedocumented as of this encounter Visit Diagnoses Diagnosis Fever, unspecified fever cause- Primary Rash and nonspecific skin eruption Rash and other nonspecific skin eruption Neck stiffness Torticollis, unspecified documented in this encounter Care Teams Clip On Sunglasses Inspector Relationship Specialty Start Date End Date Winston Daley MD [address] [place] [phone] PCP - General Family Medicine 06/03/20 documented as of this encounter
[2024-03-08 07:06] LABS: Basophils # (auto) 0.02 K/uL (0.00-0.20); Basophils % (auto) 0.3 %; Eosinophils # (auto) 0.13 K/uL (0.00-0.50); Eosinophils % (auto) 1.8 %; Immature Granulocytes # (auto) 0.03 K/uL (0.01-0.20); Immature Granulocytes % (auto) 0.4 %; Lymphocytes # (auto) 1.73 K/uL (1.20-3.40); Lymphocytes % (auto) 23.7 %; Monocytes % (auto) 8.2 %; Neutrophils % (auto) 65.6 %
[2024-03-08 07:11] LABS: Albumin Globulin Ratio 1.1 (0.9-2); Albumin Level 3.7 gm/dl (3.4-5.0); BUN Creatinine Ratio 19.8 (10-20); Bilirubin,Total 0.6 mg/dl (0.2-1.0); Calcium 9.1 mg/dl (8.6-10.3); Creatinine Clr Calc Pharmacy 133.1 ml/min; Est GFR (African American) 128.8 ml/min; Est GFR (Non-African American) 111.2 ml/min; Globulin 3.3 gm/dl (2.5-4.0); Potassium 4.3 mmol/L (3.5-5.1)
--- NOTE | 2024-03-08 13:31 | Hospitalist Progress Note ---
Date of Service March 08, 2024 Assessment & Plan (1) Lyme disease: (2) Fever: (3) Leukocytosis: (4) Transaminitis: (5) Elevated troponin: Plan: Patient is 39 year old male without significant PMH presented to ER with c/o fever, IRBY, left neck discomfort, myalgias x greater than one week. Outpatient 03/04/24 negative SARS-CoV-2, influenza, RSV PCR , negative Lyme disease antibody screen, and negative HCV antibody and HepBs antigen. T bili: 0.2, AST: 309, ALT: 468, Alk Phos: 179. 03/06/2024 ultrasound abdomen impression: Homogeneous subcentimeter hypoechoic lesion in right hepatic lobe, which likely represents a hemangioma, further evaluation with MRI abdomen with and without contrast recommended. splenomegaly with spleen measuring 12.8 cm. Contracted gallbladder, no pericholecystitis fluid or calculus. No intrahepatic or extrahepatic biliary ductal dilation. Common bile duct measures 0.5 cm proximally. Unremarkable head and body of pancreas. Pancreatic tail obscured by bowel gas. Right kidney no hydronephrosis. No ascites. Lyme's disease Transaminitis secondary to alcohol --CT ABD:No acute intra-abdominal or intrapelvic abnormality identified. Normal appendix. Contracted gallbladder. Borderline enlarged spleen. --CXR:No acute cardiopulmonary findings. -- Lyme screen positive --Hepatitis panel negative --Blood culture pending --Anaplasma PCR and ehrlichia pending -- Negative bio fire -- Troponin down trended -- Clinically improved with doxycycline --Advised to be monitored for 1 more day, patient prefers to be discharged home today. Patient understands the risks and complications Plan to be discharged home today. Advised to get repeat blood work to monitor his LFTs as outpatient DVT Prophylaxis SCDs CODE STATUS Full code Disposition Home Admission and Anticipated Discharge Date Admission Date: March 07, 2024 Subjective Patient is seen and examined at bedside States feeling a lot better today Rash, joint pain much improved No new complaints Eager to get discharged Review of Systems Review of Systems: All systems reviewed & are unremarkable except as noted in Subjective Physical Exam Physical Exam: Physical Exam: Vitals signs as noted above General Appearance:Moderately built and nourished, no apparent distress Head: normocephalic, Atraumatic Eyes: normal inspection, EOMI Neck: supple, Trachea midline Respiratory/Chest: Normal breath sounds, CTA, No accessory muscle use Cardiovascular: S1, S2, No murmur Abdomen/GI:Soft, Non tender, Bowel sounds present Extremities/Musculoskeletal:normal inspection, no edema Neurologic/Psych:AAOX3, grossly no focal neurological deficits Skin: normal color, warm Results & Data Results & Data Vital Signs (Past 12 Hours) Vital Signs Temp Pulse Pulse Resp BP BP Pulse Ox 03/08/24 12:01 36.6 C 76 18 115/76 95 03/08/24 09:58 03/08/24 08:00 71 18 132/79 100 03/08/24 07:17 69 03/08/24 02:43 36.4 C L 72 16 111/71 98 O2 Del Method 03/08/24 12:01 Room Air 03/08/24 09:58 Room Air 03/08/24 08:00 Room Air 03/08/24 07:17 03/08/24 02:43 Room Air Laboratory Results Short CBC 03/08/24 Range/Units 06:04 WBC 7.31 (4.8-10.8) K/ul Hgb 12.2 L (14.0-18.0) g/dl Hct 36.8 L (42.0-52.0) % Plt Count 213 (130-400) K/uL BMP 03/08/24 06:04 Sodium 138 Potassium 4.3 Chloride 105 Carbon Dioxide 27 BUN 16 Creatinine 0.81 Glucose 95 Calcium 9.1 Liver Function 03/07/24 03/08/24 Range/Units 12:25 06:04 Total Bilirubin 0.6 D (0.2-1.0) mg/dl AST 173 H (13-39) U/L ALT 605 H 520 H (7-52) U/L Alkaline Phosphatase 181 H (34-104) U/L Albumin 3.7 (3.4-5.0) gm/dl Urine 03/07/24 Range/Units 20:40 Urine Color Yellow Urine Appearance Clear (Clear) Urine pH 6.5 (4.5-7.5) Ur Specific [place] 1.021 (1.000-1.030) Urine Protein Negative (Negative) Urine Glucose (UA) Negative (Negative)
--- NOTE | 2024-03-08 13:36 | Discharge Summary ---
Date of Service March 08, 2024 Admission HPI Per Admitting Provider Patient is 39 year old male without significant PMH presented to ER with c/o fever. History obtained from patient and outpatient chart review. Per chart review was seen at urgent care on 03/04/2024 for fever, posterior IRBY, myalgias at that time for 6 days. He had negative SARS-CoV-2, influenza, RSV PCR at that time. Had a negative Lyme disease antibody screen, and negative HCV antibody and HepBs antigen at that time. T bili: 0.2, AST: 309, ALT: 468, Alk Phos: 179. 03/06/2024 ultrasound abdomen impression: Homogeneous subcentimeter hypoechoic lesion in right hepatic lobe, which likely represents a hemangioma, further evaluation with MRI abdomen with and without contrast recommended. splenomegaly with spleen measuring 12.8 cm. Contracted gallbladder, no pericholecystitis fluid or calculus. No intrahepatic or extrahepatic biliary ductal dilation. Common bile duct measures 0.5 cm proximally. Unremarkable head and body of pancreas. Pancreatic tail obscured by bowel gas. Right kidney no hydronephrosis. No ascites. Patient states was prescribed doxycycline and has taken 1 pill. Patient reports often has ticks crawling on him. Last embedded tick he removed was in 11/2023. 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 Denies known history of Lyme disease or Tick borne illness. Was taking 2 tabs OTC Tylenol BID for 2 days. Last used couple days ago. Otherwise was using 2 tabs OTC Ibuprofen twice a day. Drinks 1 ETOH beverage once a month. Denies known liver disorder. States when takes ibuprofen or Tylenol the fever and IRBY reduce. States couple of days ago had epigastric discomfort which has resolved. States has discomfort of his left posterior neck with movement. Fever Tmax 101F couple of days ago. Had telemedicine visit today 03/07/2024 has had continued fevers and was recommended to come to ER. Denies N/V/D/C, IRBY, dizziness, syncope, vision changes, CP, SOB, orthopnea, palpitations, cough, sore throat, otalgia, rhinorrhea, paresthesias, weakness, extremity edema, rashes, urinary symptoms. Denies significant FH Admission Exam Per Admitting Provider General: no acute distress, WDWN Head: normocephalic, atraumatic Eyes: conjunctiva non-injected, anicteric ENT: normal inspection external ears, nose, mucous membranes moist Neck: supple, trachea midline, ROM neck intact without rigidity noted, +tenderness to palpation left posterior cervical region Lungs: clear, no respiratory distress, no wheezing/rhonchi/rales CV: RRR, no murmur, no pretibial edema Abd: normal BS, soft, non-tender to palpation Ext: no cyanosis, no calf tenderness Neuro: A&O x 3, no focal deficits noted, normal affect Skin: hot, dry, +oval erythema area to abdomen, right flank and lower back Principal Diagnosis Lyme's disease Transaminitis Discharge Data Allergies Allergy/AdvReac Type Severity Reaction Status Date / Time No Known Allergies Allergy Unverified 12/30/12 18:33 Consultations 03/07/24 15:54 ED Decision to Admit Stat Procedures Performed Laboratory Results WBC 7.31 K/ul (4.8-10.8) 03/08/24 06:04 RBC 4.18 M/uL (4.70-6.10) L 03/08/24 06:04 Hgb 12.2 g/dl (14.0-18.0) L 03/08/24 06:04 Hct 36.8 % (42.0-52.0) L 03/08/24 06:04 MCV 88.0 fL (80.0-100.0) 03/08/24 06:04 MCH 29.2 pg (25.0-34.0) 03/08/24 06:04 MCHC 33.2 g/dL (32.0-36.0) 03/08/24 06:04 RDW Std Deviation 39.4 fL (36.4-46.3) 03/08/24 06:04 RDW Coeff of Juanito 12.3 % (11.5-14.5) 03/08/24 06:04 Plt Count 213 K/uL (130-400) 03/08/24 06:04 MPV 8.3 fL (9.4-12.4) L 03/08/24 06:04 Immature Gran % (Auto) 0.4 % 03/08/24 06:04 Neut % (Auto) 65.6 % 03/08/24 06:04 Lymph % (Auto) 23.7 % 03/08/24 06:04 [place] % (Auto) 8.2 % 03/08/24 06:04 Eos % (Auto) 1.8 % 03/08/24 06:04 Baso % (Auto) 0.3 % 03/08/24 06:04 Neut # (Auto) 4.80 K/uL (1.40-6.50) 03/08/24 06:04 Lymph # (Auto) 1.73 K/uL (1.20-3.40) 03/08/24 06:04 [place] # (Auto) 0.60 K/uL (0.11-0.59) H 03/08/24 06:04 Eos # (Auto) 0.13 K/uL (0.00-0.50) 03/08/24 06:04 Baso # (Auto) 0.02 K/uL (0.00-0.20) 03/08/24 06:04 Immature Gran # (Auto) 0.03 K/uL (0.01-0.20) 03/08/24 06:04 PT 11.2 Seconds (9.0-12.0) 03/07/24 12:25 INR 1.0 (0.9-1.1) 03/07/24 12:25 VBG pH 7.40 (7.36-7.41) 03/07/24 12:42 VBG pCO2 41 mmHg (38-50) 03/07/24 12:42 VBG pO2 46 mmHg 03/07/24 12:42 VBG HCO3 25 mmol/L 03/07/24 12:42 VBG O2 Saturation 81.9 % 03/07/24 12:42 VBG Base Excess 0.5 mEq/L 03/07/24 12:42 Sodium 138 mmol/L (136-145) 03/08/24 06:04 Potassium 4.3 mmol/L (3.5-5.1) 03/08/24 06:04 Chloride 105 mmol/L (98-107) 03/08/24 06:04 Carbon Dioxide 27 mmol/L (21-32) 03/08/24 06:04 Anion Gap 6 (3-11) 03/08/24 06:04 BUN 16 mg/dl (6-23) 03/08/24 06:04 Creatinine 0.81 mg/dl (0.6-1.4) 03/08/24 06:04 Est Cr Clr Drug Dosing 133.1 ml/min 03/08/24 06:04 Est GFR ( Amer) 128.8 ml/min 03/08/24 06:04 Est GFR (Non-Af Amer) 111.2 ml/min 03/08/24 06:04 BUN/Creatinine Ratio 19.8 (10-20) 03/08/24 06:04 Glucose 95 mg/dl (70-99(Fasting)) 03/08/24 06:04 Lactate 1.3 mmol/L (0.4-2.0) 03/07/24 12:26 Calcium 9.1 mg/dl (8.6-10.3) 03/08/24 06:04 Magnesium 2.0 mg/dl (1.7-2.4) 03/07/24 12:25 Total Bilirubin 0.6 mg/dl (0.2-1.0) D 03/08/24 06:04 Direct Bilirubin 0.3 mg/dl (0-0.2) H 03/07/24 12:25 AST 173 U/L (13-39) H 03/08/24 06:04 ALT 520 U/L (7-52) H 03/08/24 06:04 Alkaline Phosphatase 181 U/L (34-104) H 03/08/24 06:04 Troponin I High Sens 19.5 pg/ml (0-20) 03/07/24 20:51 Total Protein 7.0 gm/dl (6.0-8.3) 03/08/24 06:04 Albumin 3.7 gm/dl (3.4-5.0) 03/08/24 06:04 Globulin 3.3 gm/dl (2.5-4.0) 03/08/24 06:04 Albumin/Globulin Ratio 1.1 (0.9-2) 03/08/24 06:04 Lipase 85 U/L (11-82) H 03/08/24 06:04 Procalcitonin 0.34 ng/ml (0-0.5) 03/07/24 12:25 Urine Color Yellow 03/07/24 20:40 Urine Appearance Clear (Clear) 03/07/24 20:40 Urine pH 6.5 (4.5-7.5) 03/07/24 20:40 Ur Specific [place] 1.021 (1.000-1.030) 03/07/24 20:40 Urine Protein Negative (Negative) 03/07/24 20:40 Urine Glucose (UA) Negative (Negative) 03/07/24 20:40 Urine Ketones 1+ (Negative) H 03/07/24 20:40 Urine Blood Negative (Negative) 03/07/24 20:40 Urine Nitrite Negative (Negative) 03/07/24 20:40 Urine Bilirubin Negative (Negative) 03/07/24 20:40 Urine Urobilinogen Negative (Negative) 03/07/24 20:40 Ur Leukocyte Esterase Negative (Negative) 03/07/24 20:40 Adenovirus (PCR) Not Detected (NotDetected) 03/07/24 12:25 Anaplasma Smear See Comment 03/07/24 12:25 B. pertussis DNA (PCR) Not Detected (NotDetected) 03/07/24 12:25 B.parapertussis DNA PCR Not Detected (NotDetected) 03/07/24 12:25 Lyme Disease Screen Positive (Negative) H 03/07/24 12:25 Lyme Tier 2 IgG Confirm Positive (Negative) H 03/07/24 12:25 Lyme Tier 2 IgM Confirm Positive (Negative) H 03/07/24 12:25 C. pneumoniae DNA (PCR) Not Detected (NotDetected) 03/07/24 12:25 Coronavirus OC43 (PCR) Not Detected (NotDetected) 03/07/24 12:25 Coronavirus HKU1 (PCR) Not Detected (NotDetected) 03/07/24 12:25 Coronavirus 229E (PCR) Not Detected (NotDetected) 03/07/24 12:25 SARS-CoV-2 (PCR) Not Detected (NotDetected) 03/07/24 12:25 Coronavirus NL63 (PCR) Not Detected (NotDetected) 03/07/24 12:25 Hep Bs Antigen Negative (Negative) 03/07/24 12:25 Hepatitis C Antibody Negative (Negative) 03/07/24 12:25 Human Metapneumovir PCR Not Detected (NotDetected) 03/07/24 12:25 Influenza Type A (PCR) Not Detected (NotDetected) 03/07/24 12:25 Influenza Type B (PCR) Not Detected (NotDetected) 03/07/24 12:25 M. pneumoniae (PCR) Not Detected (NotDetected) 03/07/24 12:25 Parainfluenza 1 (PCR) Not Detected (NotDetected) 03/07/24 12:25 Parainfluenza 2 (PCR) Not Detected (NotDetected) 03/07/24 12:25 Parainfluenza 3 (PCR) Not Detected (NotDetected) 03/07/24 12:25 Parainfluenza 4 (PCR) Not Detected (NotDetected) 03/07/24 12:25 RSV (PCR) Not Detected (NotDetected) 03/07/24 12:25 Entero/Rhino (PCR) Not Detected (NotDetected) 03/07/24 12:25 Impressions Chest X-Ray 03/07/24 12:18 XR chest 1V portable CLINICAL HISTORY: Sepsis. COMPARISON STUDY: Chest CT and chest radiograph December 30, 2012. FINDINGS: Lung volumes are normal. Lungs are clear. There is no pneumothorax or pleural effusion. Cardiac size is normal. Mediastinal contours are normal. There is no evidence for pulmonary edema. IMPRESSION: No acute cardiopulmonary findings. ACT 112: Negative or not required by law. Electronically signed by: Florencio Cardona M.D. 03/07/2024 1:15 PM Abdomen/Pelvis CT 03/07/24 13:[address] WITH IV CONTRAST CT DOSE: 998.26 mGy.cm HISTORY: Acute right upper quadrant abdominal pain RUQ abdominal pain; transaminitis TECHNIQUE: Multiaxial CT images of the abdomen and pelvis were performed following the IV administration of 94 cc of Optiray, A dose lowering technique was utilized adhering to the principles of ALARA. COMPARISON STUDY: 12/30/2012 FINDINGS: The lung bases are clear. Spleen is mildly enlarged, 13.5 cm. The liver, contracted gallbladder, pancreas, kidneys, and adrenal glands are within normal limits. Mild periportal edema. No bowel wall thickening or obstruction. Normal appendix. Small fat filled right inguinal hernia. The pelvic organs are unremarkable. No suspicious lytic or blastic osseous lesions. IMPRESSION: 1. No acute intra-abdominal or intrapelvic abnormality identified. 2. Normal appendix. 3. Contracted gallbladder. 4. Borderline enlarged spleen. ACT 112: Negative or not required by law. The above report was generated using voice recognition software. It may contain grammatical, syntax or spelling errors. Electronically signed by: Emanuel Andre M.D. 03/07/2024 2:29 PM Ordered Studies 03/07/24 13:37 CT Abd and Pelvis [CT abd pelvis IV con only] Stat Hospital Course (1) Lyme disease: (2) Fever: (3) Leukocytosis: (4) Transaminitis: (5) Elevated troponin: Patient is 39 year old male without significant PMH presented to ER with c/o fever, IRBY, left neck discomfort, myalgias x greater than one week. Outpatient 03/04/24 negative SARS-CoV-2, influenza, RSV PCR , negative Lyme disease antibody screen, and negative HCV antibody and HepBs antigen. T bili: 0.2, AST: 309, ALT: 468, Alk Phos: 179. 03/06/2024 ultrasound abdomen impression: Homogeneous subcentimeter hypoechoic lesion in right hepatic lobe, which likely represents a hemangioma, further evaluation with MRI abdomen with and without contrast recommended. splenomegaly with spleen measuring 12.8 cm. Contracted gallbladder, no pericholecystitis fluid or calculus. No intrahepatic or extrahepatic biliary ductal dilation. Common bile duct measures 0.5 cm proximally. Unremarkable head and body of pancreas. Pancreatic tail obscured by bowel gas. Right kidney no hydronephrosis. No ascites. Lyme's disease Transaminitis secondary to alcohol --CT ABD:No acute intra-abdominal or intrapelvic abnormality identified. Normal appendix. Contracted gallbladder. Borderline enlarged spleen. --CXR:No acute cardiopulmonary findings. -- Lyme screen positive --Hepatitis panel negative --Blood culture pending --Anaplasma PCR and ehrlichia pending -- Negative bio fire -- Troponin down trended -- Clinically improved with doxycycline --Advised to be monitored for 1 more day, patient prefers to be discharged home today. Patient understands the risks and complications Plan to be discharged home today. Advised to get repeat blood work to monitor his LFTs as outpatient DVT Prophylaxis SCDs CODE STATUS Full code Disposition Home Total Time Total Time Spent Total Time Spent (In Minutes): 54 minutes Discharge Plan Discharge Items Patient Disposition: Home - Self-Care Reason For Visit: FEVER Discharge Diagnosis: Lyme's disease Transaminitis Activity: Per Instructions section Exercise/Sports: Wait until after follow-up appointment Non-emergency contact: Primary Care Provider Call non-emergency contact if: you have any medication questions, your symptoms worsen, your pain is concerning for you and you have a fever Follow-up/Referrals: Quirino Norton PA-C [Outside Practitioners] - (Date & Time 03/13/2024 10:00 AM Provider Quirino Norton PA-C Department [facility] ) Diet: Heart Healthy Addtl Attending Provider Instructions: Follow-up with your primary care physician Quirino Norton PA-C on 03/13/2024 10:00 AM --Obtain blood test (comprehensive metabolic panel) in 1 week to monitor your liver enzymes. --Your serological test for Anaplasma, Ehrlichia is still pending at the time of discharge. Follow-up with your physician for results. --Complete the antibiotic doxycycline course as prescribed previously Seek immediate medical attention if your symptoms reoccur or worsen Please take all medications as instructed on discharge list below. Please call if you have any questions or problems. You can reach a [facility] hospitalist on duty at [facility] 24 hours a day by calling [phone] Pending Studies at Discharge: Yes Studies:: Anaplasma PCR and Ehrlichia pending Stand-Alone Forms: My [facility], Smoking Cessation Medications and DC Order Prescriptions: Continued multivitamin Tablet 1 tab PO DAILY doxycycline hyclate 100 mg capsule 100 mg PO Discharge Orders: Discharge Order (Routine); Ordered 03/08/24 Ordered By: Devaughn Bashir Admission Data Admit Date/Time: 03/07/24 16:19 Attending Provider: Devaughn Bashir Admit Provider: Miriam Weber Primary Care Provider: Winston Daley Other Providers: Miriam Weber
--- NOTE | 2024-03-08 19:52 | Electrocardiogram Report ---
Test Reason : Blood Pressure : / mmHG Vent. Rate : 069 BPM Atrial Rate : 069 BPM P-R Int : 224 ms QRS Dur : 096 ms QT Int : 398 ms P-R-T Axes : 052 028 029 degrees QTc Int : 426 ms Sinus rhythm with 1st degree A-V block Incomplete right bundle branch block Borderline ECG When compared with ECG of 07-MAR-2024 12:26, LA interval has increased Confirmed by Russ Saab ([id number]) on 03/08/2024 7:52:29 PM Referred By: REFERRED SELF Confirmed By:Russ Saab
[2024-03-09 12:33] LABS: Hepatitis A Antibody IgM NON-REACTIVE (NON-REACTIVE); Hepatitis B Core Antibody IgM NON-REACTIVE (NON-REACTIVE)
== END 2024-03-08 14:09 | disposition home or self-care (01) | DRG 869 ==
LOC: ED 12:05 → SUATTDRO 16:19 → 2N 16:19